=== PATIENT | male | born 1970 | race Caucasian/White ===

== ENCOUNTER 2018-12-17 22:26 | Emergency (ER) | payer OTHER ==
[2018-12-17 22:37] VITALS: BP 163/114; PULSE 96; RESP 20; TEMP 97.7; O2SAT 98
[2018-12-17] MEDS ORDERED: SODIUM CHLORIDE 0.9% 1000ML 1,000 ML IV ONE (22:50)
[2018-12-17] MEDS ORDERED: KETOROLAC TROMETHAMINE 30 MG/ML SOL IV ONE (22:50)
[2018-12-17] MEDS ORDERED: MORPHINE SULFATE 10 MG/ML SOL IV ONE (22:50)
[2018-12-17] MEDS ORDERED: MORPHINE SULFATE 10 MG/ML SOL ONE (23:04)
[2018-12-17] MEDS ORDERED: KETOROLAC TROMETHAMINE 30 MG/ML SOL ONE (23:04)
[2018-12-17 23:16] LABS: BASOPHILS % (AUTO) 1 % (0-3); EOSINOPHILS % (AUTO) 2 % (0-9); HEMATOCRIT 47 % (39-53); HEMOGLOBIN 15.5 gm/dl (13.5-17.7); LYMPHOCYTES % (AUTO) 29.1 % (10-50); MEAN CORPUSCULAR HEMOGLOBIN 28.6 pg (27.0-32.0); MEAN CORPUSCULAR HGB CONC 33.1 gm/dl (32.0-36.0); MEAN CORPUSCULAR VOLUME 86 fL (80-100); MONOCYTES % (AUTO) 6.3 % (0-12); NEUTROPHILS % (AUTO) 61.4 % (37-80)
[2018-12-17 23:21] LABS: ALBUMIN 3.7 gm/dl (3.4-5.0); BILIRUBIN,TOTAL 0.6 mg/dl (0.2-1.0); CALCIUM 8.4 mg/dl (8.5-10.1); CARBON DIOXIDE 27.5 mEq/L (21-32); CREATININE 1.14 mg/dl (0.80-1.30); POTASSIUM 4.2 mMol/L (3.5-5.1); TOTAL PROTEIN 7.7 gm/dl (6.4-8.2)
[2018-12-18 00:34] LABS: APPEARANCE,URINE Slightly Cloudy; BILIRUBIN,URINE NEGATIVE (NEGATIVE); COLOR,URINE Dark yellow; GLUCOSE, URINE (UA) NEGATIVE (NEGATIVE); KETONES,URINE NEGATIVE (NEGATIVE); LEUKOCYTE ESTERASE ,URINE NEGATIVE (NEGATIVE); NITRATE,URINE NEGATIVE (NEGATIVE); OCCULT BLOOD,URINE NEGATIVE (NEG-TRACE); PH,URINE 5.5
[2018-12-18] MEDS ORDERED: CEFTRIAXONE 1 GM PDS 1 GM in SODIUM CHLORIDE 0.9% 50 ML 50 ML IV ONE (00:35)
[2018-12-18] MEDS ORDERED: CEFTRIAXONE 1 GM PDS ONE (00:37)
[2018-12-18 00:46] LABS: RBC,URINE NEG (0-3AV/HPF); WBC,URINE 0-1 (0-5AV/HPF)
[2018-12-18 00:47] LABS: BACTERIA NEGATIVE (< 1+); CRYSTALS 1+ AMORPH PHOSPHATES (0-3 AVE/HPF)
== END 2018-12-18 01:02 | disposition home or self-care (01) | DRG 392 ==
LOC: ED 22:26
DX: R10.31 Right lower quadrant pain (principal)
CPT/HCPCS: 74176; 80053; 81001; 85025; 96365; 96374; 96375; 99283; 99284; J0696; J1885; J2270